=== PATIENT | male | born 1930 | race Caucasian/White ===

== ENCOUNTER → 2018-09-28 | Outpatient (REF) ==
[~2018-09-28] MED LIST: ULTRAM 50MG TAB50 MG PO; VISION VITAMINS1 TA1 PO; VITAMINC1000TA PO
[2018-09-28 16:43] LABS: THYROID STIMULATING HORMONE 2.07 uIU/mL (0.465-4.680)
== END ==
LOC: ZLAB.WCH 15:54
PROVIDERS: Family Medicine
DX: Z01.89 Encounter for other specified special examinations (principal)

== ENCOUNTER → 2018-10-07 | Outpatient (CLI) | payer MEDICARE, OTHER | LOC: COL.RAD 13:15 | DX: H49.20 Sixth [abducent] nerve palsy, unspecified eye (principal); H53.2 Diplopia; I10 Essential (primary) hypertension; S61.216A Laceration without foreign body of right little finger without damage to nail, initial encounter ==